=== PATIENT | female | born 1945 | race Caucasian/White ===

== ENCOUNTER → 2016-05-04 | Outpatient (CLI) | payer MEDICARE, BC ==
--- NOTE | 2016-05-05 11:41 | MM ---
Reason for exam: screening (asymptomatic). Last mammogram was performed 1 year and 1 month ago. History: Patient is postmenopausal and history of other cancer. Family history of breast cancer in sister at age 75 and breast cancer in aunt. Took estrogen for 9 years beginning at age 49. Took progesterone for 9 years beginning at age 49. Physical Findings: A clinical breast exam by your physician is recommended on an annual basis and results should be correlated with mammographic findings. MG 3D Screening Mammo W/Cad Bilateral CC and MLO view(s) were taken. Prior study comparison: April 17, 2015, right breast MG 3d work up w/cad RT. March 28, 2015, bilateral MG screening mammo w CAD. The breast tissue is heterogeneously dense. This may lower the sensitivity of mammography. No significant changes when compared with prior studies. ASSESSMENT: Negative, BI-RAD 1 RECOMMENDATION: Routine screening mammogram of both breasts in 1 year.
== END | disposition home or self-care (01) ==
LOC: RADMAMWWP 12:50
PROVIDERS: ATTEND Family Medicine
DX: Z12.31 Encounter for screening mammogram for malignant neoplasm of breast (principal)
CPT/HCPCS: 77063; G0202

== ENCOUNTER → 2017-04-05 | Outpatient (CLI) | payer MEDICARE, BC | END | disposition home or self-care (01) | LOC: CANPRECLI → WWCWWP 13:44 | PROVIDERS: ATTEND Obstetrics & Gynecology | DX: Z53.9 Procedure and treatment not carried out, unspecified reason (principal) ==

== ENCOUNTER → 2017-07-01 | Outpatient (CLI) | payer MEDICARE, BC ==
--- NOTE | 2017-07-04 11:38 | MM ---
Reason for exam: screening (asymptomatic). Last mammogram was performed 1 year and 2 months ago. History: Patient is postmenopausal and history of other cancer. Family history of breast cancer in sister at age 75 and breast cancer in aunt. Took estrogen for 9 years beginning at age 49. Took progesterone for 9 years beginning at age 49. Physical Findings: A clinical breast exam by your physician is recommended on an annual basis and results should be correlated with mammographic findings. MG 3D Screening Mammo W/Cad Bilateral CC and MLO view(s) were taken. Prior study comparison: May 04, 2016, bilateral MG 3d screening mammo w/cad. April 17, 2015, right breast MG 3d work up w/cad RT. The breast tissue is heterogeneously dense. This may lower the sensitivity of mammography. No significant changes when compared with prior studies. ASSESSMENT: Benign, BI-RAD 2 RECOMMENDATION: Routine screening mammogram of both breasts in 1 year.
== END | disposition home or self-care (01) ==
LOC: RADMAMWWP 12:37
PROVIDERS: ATTEND Obstetrics & Gynecology
DX: Z12.31 Encounter for screening mammogram for malignant neoplasm of breast (principal)
CPT/HCPCS: 77063; 77067

== ENCOUNTER 2018-04-09 23:44 | Emergency (ER) | payer MEDICARE, BC ==
[2018-04-09 23:52] VITALS: TEMP 97.5
[2018-04-10 00:47] LABS: Basophils % (A) 0 %; Eosinophils # (A) 0.1 k/uL (0-0.7); Eosinophils % (A) 2 %; HCT 42.4 % (34.0-46.0); HGB 13.9 gm/dL (11.4-16.0); Lymphocytes # (A) 1.7 k/uL (1.0-4.8); Lymphocytes % (A) 21 %; MCH 32.5 pg (25.0-35.0); MCHC 32.7 g/dL (31.0-37.0); MCV 99.2 fL (80.0-100.0); Mean Platelet Volume 8.4; Monocytes # (A) 0.3 k/uL (0-1.0); Monocytes % (A) 4 %; Neutrophils % (A) 73 %; Platelet Count 141 k/uL (150-450); RBC 4.28 m/uL (3.80-5.40); WBC 8.3 k/uL (3.8-10.6)
--- NOTE | 2018-04-10 01:01 | XR ---
EXAMINATION TYPE: XR chest 2V DATE OF EXAM: 04/10/2018 COMPARISON: NONE HISTORY: Epigastric pain TECHNIQUE: Frontal and lateral views of the chest are obtained. FINDINGS: There is no heart failure nor confluent pneumonic infiltrate. Costophrenic angles are paramjit r. There are chest leads. Bony thorax is intact. There are small calcified granuloma at the left isidro hilum. IMPRESSION: No active cardiopulmonary disease. Normal heart.
[2018-04-10 01:02] LABS: INR 0.9 (<1.2); Partial Thromboplastin Time 22.2 sec (22.0-30.0)
[2018-04-10 01:04] LABS: ALT 17 U/L (9-52); AST 38 U/L (14-36); Albumin 4.3 g/dL (3.5-5.0); Alkaline Phosphatase 63 U/L (38-126); Amylase 75 U/L (30-110); Anion Gap 8 mmol/L; Blood Urea Nitrogen 23 mg/dL (7-17); Calcium 9.9 mg/dL (8.4-10.2); Carbon Dioxide 28 mmol/L (22-30); Chloride 101 mmol/L (98-107); Glucose 103 mg/dL (74-99); Lipase 137 U/L (23-300); Magnesium 2.1 mg/dL (1.6-2.3); Potassium 4.4 mmol/L (3.5-5.1); Sodium 137 mmol/L (137-145); Total Bilirubin 0.2 mg/dL (0.2-1.3); Total Protein 6.9 g/dL (6.3-8.2)
[2018-04-10 01:14] LABS: Creatine Kinase 61 U/L (30-135)
[2018-04-10 01:27] LABS: Creatine Kinase MB 1.1 ng/mL (0.0-2.4); Troponin I <0.012 ng/mL (0.000-0.034)
[2018-04-10] MEDS ORDERED: MAG HYDROX/AL HYDROX/SIMETH 30 ML, HYOSCYAMINE ELIXIR 10 ML, CIMETIDINE HCL 300 MG, LID... PO STA ×4 (01:35)
--- NOTE | 2018-04-10 01:47 | ED ---
General Adult HPI - General Chief complaint: Chest Pain Stated complaint: Chest Pain Time Seen by Provider: 04/10/18 00:24 Source: patient Mode of arrival: ambulatory Limitations: no limitations - History of Present Illness Initial comments: Debbie is a pleasant 73 yo female who presents to the ED this evening for evaluation of burning epigastric abdominal pain. She reports she ate scrambled eggs with him and green peppers for dinner, she was feeling well at that time however around bedtime she began to experience burning pain in her epigastrium radiating into her chest and jaw. Pain was not associated with any shortness of breath, diaphoresis or lightheadedness. Pain persisted for approximately an hour at which time she took a Zantac and an 81 mg aspirin. Contacted her daughter who decided to bring her to the ER for evaluation. Patient has no history of any cardiac pathology. She has been admitted and evaluated for pain similar to this in the past and was diagnosed with acid reflux. Patient reports she still has her gallbladder and has no history of gallstones or any history of pancreatitis. She denies alcohol intake. Reports the pain resolved upon coming to the hospital. - Related Data Previous Rx's Medication Instructions Recorded Sucralfate [Carafate] 1 gm PO ACHS #1 bottle 04/10/18 Allergies Allergy/AdvReac Type Severity Reaction Status Date / Time No Known Allergies Allergy Verified 04/09/18 23:52 Review of Systems ROS Statement: Those systems with pertinent positive or pertinent negative responses have been documented in the HPI. ROS Other: All systems not noted in ROS Statement are negative. Past Medical History Past Medical History: GERD/Reflux History of Any Multi-Drug Resistant Organisms: None Reported Past Surgical History: Tonsillectomy, Tubal Ligation Additional Past Surgical History / Comment(s): left hand carpal tunnnel Past Psychological History: No Psychological Hx Reported Smoking Status: Former smoker Past Alcohol Use History: Occasional Past Drug Use History: None Reported General Exam - General Exam Comments Initial Comments: Physical Exam GENERAL: Patient is well-developed and well-nourished. Patient is nontoxic and well- hydrated and is in no distress. HENT: Normocephalic, Atraumatic. EYES: PERRL, EOMI PULMONARY: Unlabored respirations. No audible rales rhonchi or wheezing was noted. CARDIOVASCULAR: There is a regular rate and rhythm without any murmurs gallops or rubs. ABDOMEN: Soft and nontender with normal bowel sounds. SKIN: Skin is clear with no lesions or rashes and otherwise unremarkable. : Deferred NEUROLOGIC: Patient is alert and oriented x3. Moving all extremities spontaneously MUSCULOSKELETAL: Normal extremities with adequate strength and full range of motion. No lower extremity swelling or edema. No calf tenderness. PSYCHIATRIC: Normal psychiatric evaluation. Limitations: no limitations Limitations: no limitations Course Vital Signs 04/09/18 04/10/18 04/10/18 23:48 00:26 01:12 Temperature 97.5 F L Pulse Rate 59 L 55 L Pulse Rate [ 57 L Flag Signalman ] Respiratory 18 17 Rate Blood Pressure 137/73 142/73 O2 Sat by Pulse 97 98 Oximetry 04/10/18 01:58 Temperature Pulse Rate 66 Pulse Rate [ Flag Signalman ] Respiratory 24 Rate Blood Pressure 155/83 O2 Sat by Pulse 96 Oximetry EKG Findings - EKG Comments: EKG Findings:: EKG obtained at 12:08 AM, rate of 60 rhythm is sinus normal axis normal intervals no acute ST elevations or depressions no evidence of acute ischemia or infarction. Medical Decision Making - Medical Decision Making Patient was seen and evaluated, history was obtained from the patient 73-year-old female with no cardiac history, only risk factor for cardiac disease is age and history of hyperlipidemia Patient presenting with burning epigastric abdominal pain after eating a dinner which contain both him and peppers Pain was not exertional, not associated with diaphoresis lightheadedness or shortness of breath. Pain has resolved prior to arrival Labs and imaging ordered EKG was unremarkable next and chest x-ray with no acute findings Labs with no significant abnormalities. A GI cocktail was ordered and given. Patient reported resolution of all of her discomfort At the same and a high suspicion patient's discomfort was GI in etiology. Patient does not have a cardiac history and has minimal risk factors. Patient is comfortable with the plan for discharge home. Dietary modifications including avoiding spicy or greasy foods prior to going to bed were discussed with the patient. Patient will be prescribed Carafate. All questions pertaining care answered return parameters discussed patient discharged home in stable condition - Lab Data Result diagrams: 04/10/18 00:17 04/10/18 00:17 Lab Results 04/10/18 04/10/18 04/10/18 Range/Units 00:17 00:17 00:17 WBC 8.3 (3.8-10.6) k/uL RBC 4.28 (3.80-5.40) m/uL Hgb 13.9 (11.4-16.0) gm/dL Hct 42.4 (34.0-46.0) % MCV 99.2 (80.0-100.0) fL MCH 32.5 (25.0-35.0) pg MCHC 32.7 (31.0-37.0) g/dL RDW 12.0 (11.5-15.5) % Plt Count 141 L (150-450) k/uL Neutrophils % 73 % Lymphocytes % 21 % Monocytes % 4 % Eosinophils % 2 % Basophils % 0 % Neutrophils # 6.0 (1.3-7.7) k/uL Lymphocytes # 1.7 (1.0-4.8) k/uL Monocytes # 0.3 (0-1.0) k/uL Eosinophils # 0.1 (0-0.7) k/uL Basophils # 0.0 (0-0.2) k/uL PT (9.0-12.0) sec INR (<1.2) APTT (22.0-30.0) sec Sodium 137 (137-145) mmol/L Potassium 4.4 (3.5-5.1) mmol/L Chloride 101 (98-107) mmol/L Carbon Dioxide 28 (22-30) mmol/L Anion Gap 8 mmol/L BUN 23 H (7-17) mg/dL Creatinine 0.68 (0.52-1.04) mg/dL Est GFR (CKD-EPI)AfAm >90 (>60 ml/min/1.73 sqM) Est GFR (CKD-EPI)NonAf 88 (>60 ml/min/1.73 sqM) Glucose 103 H (74-99) mg/dL Calcium 9.9 (8.4-10.2) mg/dL Magnesium 2.1 (1.6-2.3) mg/dL Total Bilirubin 0.2 (0.2-1.3) mg/dL AST 38 H (14-36) U/L ALT 17 (9-52) U/L Alkaline Phosphatase 63 (38-126) U/L Total Creatine Kinase 61 (30-135) U/L CK-MB (CK-2) 1.1 (0.0-2.4) ng/mL CK-MB (CK-2) Rel Index 1.8 Troponin I <0.012 (0.000-0.034) ng/mL Total Protein 6.9 (6.3-8.2) g/dL Albumin 4.3 (3.5-5.0) g/dL Amylase 75 (30-110) U/L Lipase 137 (23-300) U/L 04/10/18 Range/Units 00:17 WBC (3.8-10.6) k/uL RBC (3.80-5.40) m/uL Hgb (11.4-16.0) gm/dL Hct (34.0-46.0) % MCV (80.0-100.0) fL MCH (25.0-35.0) pg MCHC (31.0-37.0) g/dL RDW (11.5-15.5) % Plt Count (150-450) k/uL Neutrophils % % Lymphocytes % % Monocytes % % Eosinophils % % Basophils % % Neutrophils # (1.3-7.7) k/uL Lymphocytes # (1.0-4.8) k/uL Monocytes # (0-1.0) k/uL Eosinophils # (0-0.7) k/uL Basophils # (0-0.2) k/uL PT 10.0 (9.0-12.0) sec INR 0.9 (<1.2) APTT 22.2 (22.0-30.0) sec Sodium (137-145) mmol/L Potassium (3.5-5.1) mmol/L Chloride (98-107) mmol/L Carbon Dioxide (22-30) mmol/L Anion Gap mmol/L BUN (7-17) mg/dL Creatinine (0.52-1.04) mg/dL Est GFR (CKD-EPI)AfAm (>60 ml/min/1.73 sqM) Est GFR (CKD-EPI)NonAf (>60 ml/min/1.73 sqM) Glucose (74-99) mg/dL Calcium (8.4-10.2) mg/dL Magnesium (1.6-2.3) mg/dL Total Bilirubin (0.2-1.3) mg/dL AST (14-36) U/L ALT (9-52) U/L Alkaline Phosphatase (38-126) U/L Total Creatine Kinase (30-135) U/L CK-MB (CK-2) (0.0-2.4) ng/mL CK-MB (CK-2) Rel Index Troponin I (0.000-0.034) ng/mL Total Protein (6.3-8.2) g/dL Albumin (3.5-5.0) g/dL Amylase (30-110) U/L Lipase (23-300) U/L Disposition Clinical Impression: Abdominal pain, Atypical chest pain Disposition: HOME SELF-CARE Condition: Good Instructions: Gastritis (DC), Diet for Stomach Ulcers and Gastritis (ED) Prescriptions: Sucralfate [Carafate] 1 gm PO ACHS #1 bottle Is patient prescribed a controlled substance at d/c from ED?: No Referrals: Den Ureña MD [Primary Care Provider] - 1-2 days
[2018-04-10 02:42] VITALS: BP 139/72; PULSE 82; RESP 22
== END 2018-04-10 02:56 | disposition home or self-care (01) ==
LOC: EC 23:44
DX: R07.89 Other chest pain (principal); R10.13 Epigastric pain; Z87.19 Personal history of other diseases of the digestive system; Z87.891 Personal history of nicotine dependence
CPT/HCPCS: 36415; 71046; 80053; 82150; 82550; 82553; 83690; 83735; 84484; 85025; 85610; 85730; 93005; 99285

== ENCOUNTER → 2018-06-13 | Outpatient (CLI) | payer MEDICARE, BC, OTHER ==
[2018-06-13 08:54] VITALS: BP 116/65; PULSE 80; RESP 16; TEMP 97.5; BMI 20.5
--- NOTE | 2018-06-13 09:32 | P.PN ---
Progress Note - Text Progress Note Date: 06/13/18 Chief Complaint: right labia minora swelling times 2 weeks HPI: this is a 73-year-old G3 PIII with an LMP of 1993. The patient noticed a small abrasion on the right labia minora about 2 weeks ago. She believes it was from her tight jeans that she wore at that time. The abrasion developed into swelling the size of her small finger. She went to the urgent care clinic 4 days ago and was given antibiotics. She was prescribed cephalexin 500 mg BID times 7 days. She states the swelling has gone down, however it still appears swollen compared to the other side. She does not believe that it appeared to be a blister. She does think she has had similar abrasions in the past but never was so swollen. She is wondering if she could have a yeast infection since it still is somewhat swollen. She denies any vaginal discharge or pruritus. She is not sexually active. ROS: she denies fever. She denies respiratory, cardiac, or G.I. problems. : she states she has been seen many times over the years for bladder pressure. She denies any new symptoms. She denies dysuria or urinary urgency. PE: Blood pressure: 116/65, Height: 5'3", Weight: 116 pounds, Temperature: 97.5 , Pulse: 80. Pulse oximeter 97%, respiratory rate 16. This is a well developed, well nourished, white female who is alert and orientedx3, in no acute distress. External genitalia reveals generalized moderate atrophy. There is a 3 mm abrasion in the right labia minora which is minimally erythematous and there is no active bleeding. There is a small amount of swelling directly in this area approximately the size of a small pea in the right labia minora. This is about twice the normal size compared to the left side. The area is nontender. The rest of the right labia minora is minimally enlarged compared to the left labia minora. Speculum exam reveals mild to moderate vaginal atrophy and the cervix appears normal. There is no unusual discharge. Impression: 1. 73-year-old menopausal female with right labial abrasion and resulting vulvitis with swelling which has improved according to the patient following PO cephalexin which was described 4 days ago. Differential diagnosis will also include genital herpes lesion, however, she states she has no history of genital herpes, so I think this would be unlikely. 2. No evidence of yeast infection at this time. Plan: 1. She was instructed to complete her course of cephalexin as directed. 2. Neosporin BID to the small abrasion until well-heeled. She can also use warm compresses to the area. 3. If she has a recurrence of the abrasion type lesion, she is instructed to make an appointment to see me as soon as possible for reevaluation. 4. She will return in approximately 2 weeks. She states she has an appointment for her annual well woman exam and we will reevaluate this area at that time. 5. She was also instructed to call if she is having problems such as vulvar pruritus or whitish discharge, in which case we may treat her for a yeast infection. Time spent with the patient: 15 minutes
== END | disposition home or self-care (01) ==
LOC: WWCWWP 08:31
PROVIDERS: ATTEND Obstetrics & Gynecology
DX: Z53.9 Procedure and treatment not carried out, unspecified reason (principal)

== ENCOUNTER → 2018-07-04 | Outpatient (CLI) | payer MEDICARE, BC ==
[2018-07-04 11:22] VITALS: BP 109/63; PULSE 63; RESP 16; TEMP 97.7; BMI 20.2
--- NOTE | 2018-07-04 12:19 | P.HPOB ---
History of Present Illness H&P Date: 07/04/18 Chief Complaint: The patient is here for her routine gynecologic exam and ma mmogram. This is a 73-year-old G3 PIII with an LMP of 1993. The patient is without gynecologic complaints. She was recently seen on 06/13/2018 because of an abrasion on the right labia. She states this has healed up, but she has to be careful that if she wears tight jeans it can irritate this. Review of Systems Weight has been stable. She denies respiratory, cardiac and G.I. problems. She denies maltreatment or problems with falling. : she occasionally has urinary frequency where she has to get up several times during the night. She has been seeing Dr. Bull, the urologist for this. Past Medical History Past Medical History: Eye Disorder, GERD/Reflux Additional Past Medical History / Comment(s): Glaucoma and osteoporosis (s/p >5yrs use of Actonel). 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 History of Any Multi-Drug Resistant Organisms: None Reported Past Surgical History: Tonsillectomy, Tubal Ligation Additional Past Surgical History / Comment(s): left hand carpal tunnnel. Cataract surgery. Colonoscopy 2013(3rd, next 5 yrs). Upper endoscopy 2016. Past Psychological History: No Psychological Hx Reported Smoking Status: Former smoker (Quit at age 41) Past Alcohol Use History: Occasional (0 to 3 per month) Past Drug Use History: None Reported Additional History: She is a and is not sexually active. - Past Family History Sister(s) Family Medical History: Cancer Additional Family Medical History / Comment(s): Breast cancer. A different sister had lung cancer. Father Additional Family Medical History / Comment(s): Heart disease. Paternal aunt had breast cancer. Medications and Allergies Home Medications Medication Instructions Recorded Confirmed Type ALPRAZolam [Xanax] 0.25 mg PO DAILY PRN 06/13/18 07/04/18 History Alendronate Sodium [Fosamax] 70 mg PO DAILY 06/13/18 07/04/18 History Brimonidine Tartrate [Alphagan P 1 drops BOTH EYES Q8H 06/13/18 07/04/18 History 0.2% Ophth Soln] Famotidine [Pepcid] 20 mg PO DAILY 06/13/18 07/04/18 History Latanoprost/Pf [Latanoprost 0.005% 1 drop BOTH EYES HS 06/13/18 07/04/18 History Eye Drop] Polyethylene Glycol 3350 [Miralax] 17 gm PO DAILY 06/13/18 07/04/18 History Allergies Allergy/AdvReac Type Severity Reaction Status Date / Time No Known Allergies Allergy Verified 07/04/18 11:23 Exam Vital Signs Temp Pulse Resp BP Pulse Ox 07/04/18 11:13 97.7 F 63 16 109/63 98 Intake and Output 07/03/18 07/04/18 07/04/18 22:59 06:59 14:59 Other: Weight 51.71 kg Height 5'3", weight 114 pounds, BMI 20.2. This is a well-developed well-nourished white female who is alert and oriented times 3 in no acute distress. HEENT: Within normal limits. NECK: Supple without mass or thyromegaly. CHEST AND LUNGS: Clear to auscultation. HEART: Regular rate and rhythm. BREASTS: Are without mass or discharge. AXILLARY EXAM: Negative for adenopathy. BACK: Negative for CVA tenderness. ABDOMEN: Soft, nontender, without palpable masses. PELVIC EXAM: Normal external genitalia with moderate atrophy. The previously seen right labial abrasion is no longer seen. There is no evidence of swelling or erythema as well. Cervix and vagina appear normal with moderate atrophy. There is no unusual discharge. There is no evidence of prolapse. The uterus is midposition, nongravid size and nontender. There are no palpable adnexal masses or tenderness. RECTAL EXAM: rectovaginal exam is negative for mass or tenderness and is negative for occult blood. EXTREMITIES: Nontender. IMPRESSION: 1. 73-year-old menopausal female with normal gynecologic exam. 2. Resolution of the right labial abrasion noted on 06/13/2018. 3. History of osteoporosis on Fosamax. PLAN: 1. Pap smear was deferred since she had a normal one on 04/05/2017. 2. Self breast awareness was discussed with the patient. 3. Greening mammogram will be done today. 4. Osteoporosis management was discussed. I have stressed the importance of adequate calcium, vitamin D and regular exercise. Recommended amounts of calcium and vitamin D were also discussed. She will continue to be treated with Fosamax and have bone density testing done through Dr. Minor. 5. She did receive a flu shot this past fall. 6. She will look into a colonoscopy in the upcoming year. 7.She was advised to return in one year for her annual well woman exam.
--- NOTE | 2018-07-06 10:05 | MM ---
Reason for exam: screening (asymptomatic). Last mammogram was performed 1 year ago. History: Patient is postmenopausal and history of other cancer. Family history of breast cancer in sister at age 75 and breast cancer in aunt. Took estrogen for 9 years beginning at age 49. Took progesterone for 9 years beginning at age 49. Physical Findings: A clinical breast exam by your physician is recommended on an annual basis and results should be correlated with mammographic findings. MG 3D Screening Mammo W/Cad Bilateral CC and MLO view(s) were taken. Prior study comparison: July 01, 2017, bilateral MG 3d screening mammo w/cad. May 04, 2016, bilateral MG 3d screening mammo w/cad. The breast tissue is heterogeneously dense. This may lower the sensitivity of mammography. No significant changes when compared with prior studies. ASSESSMENT: Negative, BI-RAD 1 RECOMMENDATION: Routine screening mammogram of both breasts in 1 year.
== END ==
LOC: WWCWWP 11:06
PROVIDERS: ATTEND Obstetrics & Gynecology
DX: Z12.31 Encounter for screening mammogram for malignant neoplasm of breast (principal)
CPT/HCPCS: 77063; 77067

== ENCOUNTER → 2020-01-23 | Outpatient (CLI) | payer MEDICARE, BC ==
--- NOTE | 2020-01-23 13:42 | MM ---
Reason for exam: additional evaluation requested from prior study. Last mammogram was performed 1 year and 7 months ago. History: Patient is postmenopausal and history of other cancer. Family history of breast cancer in sister at age 75 and breast cancer in aunt. Took estrogen for 9 years beginning at age 49. Took progesterone for 9 years beginning at age 49. Physical Findings: Nurse did not find any significant physical abnormalities on exam. MG 3D Diag Mammo W/Cad BRANDON Bilateral CC and MLO view(s) were taken. Prior study comparison: July 04, 2018, bilateral MG 3d screening mammo w/cad. July 01, 2017, bilateral MG 3d screening mammo w/cad. The breast tissue is heterogeneously dense. This may lower the sensitivity of mammography. These results were verbally communicated with the patient and result sheet given to the patient on 01/23/20. ASSESSMENT: Benign, BI-RAD 2 RECOMMENDATION: Routine screening mammogram of both breasts in 1 year.
== END | disposition home or self-care (01) ==
LOC: RADMAMWWP 12:50
PROVIDERS: ATTEND Family Medicine
DX: N64.4 Mastodynia (principal)
CPT/HCPCS: 77066; G0279; 77062

== ENCOUNTER → 2020-04-22 | Outpatient (CLI) | payer MEDICARE, BC ==
[2020-04-22 13:38] VITALS: BP 118/72; PULSE 78; RESP 18; TEMP 97.6
--- NOTE | 2020-04-22 15:11 | P.PN ---
Progress Note - Text Progress Note Date: 04/22/20 Chief Complaint: Vulvar burning progressively getting worse over the past 2 months. HPI: This is a 75-year-old with an LMP of 1993. The patient is complaining of vulvar irritation and burning. She states when urine touches the labia it feels much worse. Most foods seem to be associated with worsening of the symptoms and she states this is caused her to lose weight. She also notices more irritation and burning with movement. On occasion she has noticed a slight discharge. Upon inspecting the vulva she has noticed a light colored bump on the inner side of the labia left side. She denies urinary urgency or urinary frequency. This feels different than the labial abrasion she complained about in 2019. She has not been sexually active for many years. ROS: She denies fever. She denies respiratory, cardiac, or GI problems. However, many foods seem to make the vulvar irritation worse and therefore she has been hesitant today eat much. She has lost weight because of this. She thinks she has lost about 8 pounds because this. PE: Blood pressure: 118/72, Height: 5 feet 3-1/2 inches, Weight: 102 pounds, Temperature: 97.6, Pulse: 78. Pulse oximeter 98%. This is a well developed, well nourished, white female who is alert and orientedx3, in no acute distress. Abdomen: Soft nontender without palpable masses. External genitalia: Moderate atrophy is noted. There is no significant erythema or inflammation. There are no external lesions noted. On the inner aspect of the labia minora on the left side there is a small varicosity which is soft and nontender and noninflamed. There are no lesions of the urinary opening. Vagina: There is minimal creamy discharge without odor. The cervix appears moderately atrophic without lesions. There is no evidence of prolapse. Bimanual examination: Uterus is atrophic nontender. There are no palpable adnexal masses or tenderness. Impression: 1. 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 2. Occasional slight discharge. Differential diagnosis will include Radha vaginitis as well as physiologic discharge. 3. Benign appearing left labia minora varicosity. Plan: 1. I have reassured the patient about the left labia minora varicosity and this appears completely benign. 2. Trial of Premarin vaginal cream 1 g into the vagina 2 times weekly. She can also use a small amount of this on the external labia. She is afraid that it may cause more burning. She was instructed to use minimal amounts the first few times she uses it to see how she tolerates it. The electronic prescription will be sent to [facility] pharmacy in [place]. 3. Affirm testing was obtained from the vagina to check for radha, Gardnerella and Trichomonas. 4. She was instructed to return in 3 weeks for follow-up or sooner if problems. Time spent with the patient: 25 minutes
[2020-04-23 04:49] LABS: Gardnerella Negative (Negative); Source Vagina; Trichomonas Negative (Negative)
== END | disposition home or self-care (01) ==
LOC: WWCWWP 13:22
PROVIDERS: ATTEND Obstetrics & Gynecology
DX: N76.2 Acute vulvitis (principal); N89.8 Other specified noninflammatory disorders of vagina
CPT/HCPCS: 87480; 87510; 87660

== ENCOUNTER → 2020-08-12 | Outpatient (CLI) | payer MEDICARE, BC ==
[2020-08-12 15:05] VITALS: BP 132/60; PULSE 76; RESP 18; TEMP 97.4
--- NOTE | 2020-08-12 16:14 | P.PN ---
Progress Note - Text Progress Note Date: 08/12/20 Chief Complaint: Vaginal and vulvar burning much worse during the past 2 weeks. HPI: This is a 75-year-old with an LMP of 1993. She states that she has had some issues with genital burning since she had an abrasion on the right labia. According to my notes she had an abrasion on the right labia in 2019 which did heal up. When she was seen earlier this year for months ago, I had recommended a trial of estrogen cream since she did have significant genital atrophy which I thought may have been leading to the burning. Affirm testing was negative for Radha, Gardnerella, and Trichomonas. She denies any vaginal discharge. She did not try the estrogen cream because she was afraid that it might cause burning or blistering. She states she has had the burning for several months but didn't get much worse 2 weeks ago. She believes certain foods make things worse. She does not think she has a urinary tract infection, but states that the urine can make things burn more when it touches the skin especially with certain types of foods including sugary foods. She states she is concerned about eating foods because the possibly can make the genital burning worse and feels like she has lost weight because of this. She is not sexually active. ROS: She denies respiratory or cardiac problems. GI: Frequent constipation. PE: Blood pressure: 132/60, Height: 5 feet 3 inches, Weight: 106 pounds, Temperature: In the 97.4, Pulse: 76. Pulse oximeter 96%. This is a well developed, well nourished, white female who is alert and orientedx3, in no acute distress. External genitalia: Normal external genitalia with mild to moderate atrophy. There is no significant erythema, no ulcerations, no vulvar lesions and no leukoplakia. Cervix and vagina appear normal with moderate atrophy. There is no unusual discharge and no odor. There are no vaginal lesions. Impression: 1. 75-year-old menopausal female with worsening of chronic vulvar and vaginal burning with no significant physical findings other than moderate genital atrophy. 2. Her discomfort is out of proportion with the physical findings at this time. Differential diagnosis will include genital atrophy resulting in vaginal and vulvar burning, central nerve pain disorder, and at this time I doubt infectious vaginitis. Plan: 1. I still feel a trial of estrogen cream would be helpful. She has not used it yet because of her concerns of cost, cancer risk and the fear that it will make the burning worse or even cause blisters or ulceration. He thinks since she has not tried it at all, we should try it using very small amounts at first and increased to a normal maintenance dose. Estradiol vaginal cream has been prescribed and was called in to [facility] in [place]. The maintenance dose will be 1 g into the vagina and 2 times weekly. At first she was instructed to use the very smallest amount on the inner labia or just inside of the vagina to see if she tolerates it. If she does tolerate this she can use a slightly larger amount into the vagina. She will work up to 1 g into the vagina and then use this twice weekly. I have tried to reassure her that this type of vaginal cream is commonly used for vaginal symptoms and vaginal atrophy and does not typically cause blisters or severe irritation. I have also reassured her that using this into the vagina does not typically cause cancer and a very small amount would get into her using it this way. We will also try to stop it after certain amount of time if has improved the symptoms or we will. If it does not improve the symptoms. 2. She will use the estrogen vaginal cream as described above. She'll call if problems and also make a follow-up appointment for 1 month. If symptoms have not improved we can consider an approach that might help with central nerve pain. We can also consider a referral to a vaginitis clinic at a center such as the [facility] or the [facility] Time spent with the patient: 25 minutes
== END ==
LOC: WWCWWP 14:49
PROVIDERS: ATTEND Obstetrics & Gynecology
DX: N90.89 Other specified noninflammatory disorders of vulva and perineum (principal); N89.8 Other specified noninflammatory disorders of vagina

== ENCOUNTER → 2021-02-17 | Outpatient (CLI) | payer MEDICARE, BC ==
--- NOTE | 2021-02-19 09:12 | MM ---
Reason for exam: screening (asymptomatic). Last mammogram was performed 1 year and 1 month ago. History: Patient is postmenopausal and history of other cancer. Family history of breast cancer in sister at age 75 and breast cancer in paternal aunt. Took estrogen for 9 years beginning at age 49. Took progesterone for 9 years beginning at age 49. Physical Findings: A clinical breast exam by your physician is recommended on an annual basis and results should be correlated with mammographic findings. MG 3D Screening Mammo W/Cad Bilateral CC and MLO view(s) were taken. Prior study comparison: January 23, 2020, bilateral MG 3d diag mammo w/cad [facility]. July 04, 2018, bilateral MG 3d screening mammo w/cad. July 01, 2017, bilateral MG 3d screening mammo w/cad. The breast tissue is heterogeneously dense. This may lower the sensitivity of mammography. No significant changes when compared with prior studies. ASSESSMENT: Benign, BI-RAD 2 RECOMMENDATION: Routine screening mammogram of both breasts in 1 year.
== END | disposition home or self-care (01) ==
LOC: RADMAMWWP 11:11
PROVIDERS: ATTEND Obstetrics & Gynecology
DX: Z12.31 Encounter for screening mammogram for malignant neoplasm of breast (principal)
CPT/HCPCS: 77063; 77067

== ENCOUNTER → 2021-09-15 | Outpatient (CLI) | payer MEDICARE, BC ==
[2021-09-15 08:55] VITALS: BP 123/73; PULSE 98; RESP 17; TEMP 98.1
--- NOTE | 2021-09-15 14:24 | P.HPOB ---
History of Present Illness H&P Date: 09/15/21 Chief Complaint: Vulvar burning which has gone on for years. This is a 76-year-old with an LMP of 1993. The patient has been experiencing a vulvar and vaginal burning and this has gone on for a few years. I have tried to treat this with vaginal estrogen cream in the past. The patient has been hesitant to use the estrogen cream for fear that it will burn. She did try small point sized amount of cream to the vulva and she states it did burn so she has not been using it. I had suggested a trial of petroleum jelly to the vulva but she states this also caused burning. She states many foods seem to make it worse since she is having a hard time finding anything to eat because of this. She is not aware of what foods seem to make it worse. Even though it has been going on for a long time, and this is now becoming a big problem since it interferes with every aspect of her general activities. She has had her urine checked on many occasions without an explanation for her burning. She states she has had some vaginal discharge which is a creamy discharge noticed in the creases between her labia majora and labia minora near the clitoris. She denies pruritus or vaginal odor. She states the burning is felt in the vagina as well as the vulva. Review of Systems She has lost about 6 pounds over the past 3 years. She denies respiratory or cardiac problems GI: many foods seem to make her genital burning worse, but she is not aware of exact foods that seem to make it worse. Past Medical History Past Medical History: Eye Disorder, GERD/Reflux Additional Past Medical History / Comment(s): Glaucoma and osteoporosis (s/p >5yrs use of Actonel). 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 History of Any Multi-Drug Resistant Organisms: None Reported Past Surgical History: Tonsillectomy, Tubal Ligation Additional Past Surgical History / Comment(s): left hand carpal tunnnel. Cataract surgery. Colonoscopy 2013(3rd, next 5 yrs). Upper endoscopy 2016. Past Psychological History: No Psychological Hx Reported Smoking Status: Former smoker Past Alcohol Use History: Occasional Past Drug Use History: None Reported Additional History: She is a . - Past Family History Sister(s) Family Medical History: Cancer Additional Family Medical History / Comment(s): Breast cancer. A different sister had lung cancer. Father Additional Family Medical History / Comment(s): Heart disease. Paternal aunt had breast cancer. Medications and Allergies Home Medications Medication Instructions Recorded Confirmed Type ALPRAZolam [Xanax] 0.25 mg PO DAILY PRN 06/13/18 09/15/21 History Brimonidine Tartrate [Alphagan P 1 drops BOTH EYES Q8H 06/13/18 09/15/21 History 0.2% Ophth Soln] Famotidine [Pepcid] 20 mg PO DAILY 06/13/18 09/15/21 History Latanoprost/Pf [Latanoprost 0.005% 1 drop BOTH EYES HS 06/13/18 09/15/21 History Eye Drop] polyethylene glycoL 3350 [Miralax] 17 gm PO DAILY 06/13/18 09/15/21 History Cholecalciferol [Vitamin D3 (25 2,000 unit PO DAILY 04/22/20 09/15/21 History Mcg = 1000 Iu)] Minoxidil [Rogaine] 60 ml TP DAILY 04/22/20 09/15/21 History Cyclobenzaprine [Flexeril] 5 mg PO DIRECTED PRN 09/15/21 09/15/21 History Allergies Allergy/AdvReac Type Severity Reaction Status Date / Time No Known Allergies Allergy Verified 08/12/20 15:08 Exam Vital Signs Temp Pulse Resp BP Pulse Ox 09/15/21 08:52 98.1 F 98 17 123/73 98 Intake and Output 09/14/21 09/15/21 09/15/21 22:59 06:59 14:59 Other: Weight 48.988 kg Height 5 feet 2 inches, weight 108 pounds, BMI 19.8. This is a well-developed well-nourished white female who is alert and oriented 3 in no acute distress. External genitalia reveals mild to moderate atrophy without lesions. There is a small amount of smegma in the folds lateral to the clitoral leblanc. There is no odor noted. There is no significant erythema or pallor noted. There are no vulvar lesions. Cervix and vagina appear normal with mild to moderate atrophy. The cervix appears somewhat stenotic and atrophic and is nearly flat to the posterior vagina. There is no unusual discharge or odor. Bimanual examination: Uterus is small and atrophic. The uterus is nontender. There are no palpable adnexal masses or tenderness. Impression: 1. Chronic vulvar and vaginal burning with minimal findings on exam today. The findings on exam are most consistent with genital atrophy without lesions or discharge. Her vulvar and vaginal burning may be related to atrophic changes, but differential diagnosis will also include Radha vaginitis, bacterial vaginosis, or nonspecific vulvodynia. Plan: 1. She has the estradiol vaginal cream which she has not used other than a trial of a small pinpoint spot on the vulva which she states caused burning. The burning seems to be there even without using the estradiol cream. I would like her to try using a larger amount of estradiol cream into the vagina. She will use 1 g in the vagina 2 times weekly. 2. If she continues to have issues using estradiol vaginal cream or if she does not noticing any improvement in 2 weeks, we have discussed a trial of duloxetine 30 mg daily for 7 days, then 60 mg daily. The electronic prescription will be sent to [facility] pharmacy in [place]. 3. I have also recommended a low oxalate diet and information on this was given to the patient. 4. Affirm vaginitis panel was sent from the vagina. 5. If her symptoms are not improving, consider referral to a vulvodynia clinic at a tertiary center. 6. She will return in approximate 4-6 weeks, or after using one month of duloxetine or as needed. Time spent with patient 40 minutes.
[2021-09-16 12:10] LABS: Gardnerella Negative (Negative); Source Vagina; Trichomonas Negative (Negative)
== END ==
LOC: WWCWWP 08:40
PROVIDERS: ATTEND Obstetrics & Gynecology
DX: N76.89 Other specified inflammation of vagina and vulva (principal); Z87.39 Personal history of other diseases of the musculoskeletal system and connective tissue; Z87.891 Personal history of nicotine dependence
CPT/HCPCS: 87480; 87510; 87660

== ENCOUNTER → 2023-06-17 | Outpatient (CLI) | payer MEDICARE, BC ==
--- NOTE | 2023-06-20 20:14 | MM ---
Reason for Exam: Screening (asymptomatic). Last screening mammogram was performed 12 month(s) ago. Patient History: Menarche at age 16. First Full-Term at age 17. Postmenopausal. Other cancer. Estrogen for 9 years from age 49 until age 58. Progesterone for 9 years from age 49 until age 58. Paternal aunt had breast cancer. Sister had breast cancer, age 75. Risk Values: Radha 5 year model risk: 3.0%. NCI Lifetime model risk: 6.0%. Prior Study Comparison: 05/04/2016 Bilateral Screening Mammogram, [facility]. 07/01/2017 Bilateral Screening Mammogram, [facility]. 07/04/2018 Bilateral Screening Mammogram, [facility]. 01/23/2020 Bilateral Diagnostic Mammogram, [facility]. 02/17/2021 Bilateral Screening Mammogram, [facility]. 06/15/2022 Bilateral MG 3D screening mammo w/cad, [facility]. Tissue Density: The breasts are heterogeneously dense, which may obscure small masses. Findings: Analyzed By CAD. There is no suspicious group of microcalcifications or new suspicious mass in either breast. Overall Assessment: Negative, BI-RAD 1 Management: Screening Mammogram of both breasts in 1 year. See note below in regards to patient's increased 5 year Radha score. Patient should continue monthly self-breast exams. A clinical breast exam by your physician is recommended on an annual basis. This exam should not preclude additional follow-up of suspicious palpable abnormalities. Note on Radha scores and lifetime risk: 1. A Radha score greater than 3% is considered moderate risk. If this is the case, consider specialist referral to assess eligibility for a risk reducing agent. 2. If overall lifetime risk for the development of breast cancer is 20% or higher, the patient may qualify for future screening with alternating mammogram and breast MRI. Electronically signed and approved by: Chari Cardoso M.D. Radiologist
== END | disposition home or self-care (01) ==
LOC: RADMAMWWP 11:07
PROVIDERS: ATTEND Family Medicine
DX: Z12.31 Encounter for screening mammogram for malignant neoplasm of breast (principal); Z78.0 Asymptomatic menopausal state; Z80.3 Family history of malignant neoplasm of breast
CPT/HCPCS: 77063; 77067

== ENCOUNTER → 2023-06-17 | Outpatient (CLI) | payer MEDICARE, BC ==
[2023-06-17 12:55] LABS: ALT 11 U/L (4-34); AST 37 U/L (14-36); African American GFR (CKD) >90 (>60 ml/min/1.73 sqM); Albumin 4.3 g/dL (3.5-5.0); Alkaline Phosphatase 71 U/L (38-126); Anion Gap 6 mmol/L; Blood Urea Nitrogen 23 mg/dL (7-17); Calcium 9.2 mg/dL (8.4-10.2); Carbon Dioxide 30 mmol/L (22-30); Chloride 104 mmol/L (98-107); Glucose 85 mg/dL (74-99); Non-African American GFR(CKD) 87 (>60 ml/min/1.73 sqM); Potassium 4.5 mmol/L (3.5-5.1); Sodium 140 mmol/L (137-145); Total Bilirubin 0.5 mg/dL (0.2-1.3); Total Protein 6.6 g/dL (6.3-8.2)
--- NOTE | 2023-06-17 13:01 | BD ---
EXAMINATION TYPE: Axial Bone Density DATE OF EXAM: 06/17/2023 CLINICAL HISTORY: 78 years old Female. ICD-10 CODE: M81.0 osteoporosis Z78.0 menopause Height: 63 Weight: 109.7 FRAX RISK QUESTIONS: Alcohol (3 or more units per day): no Family History (Parent hip fracture): no Glucocorticoids (More than 3mos): no (Ex: prednisone, prednisolone, methylprednisolone, dexamethasone, and hydrocortisone). History of Fracture in Adulthood: yes Secondary Osteoporosis: 1. Type 1 Diabetes: no 2. Hyperthyroidism: no 3. Menopause before 45: yes 4. Malnutrition: no 5. Chronic liver disease: no Rheumatoid Arthritis: no Current Tobacco Use: no RISK FACTORS HISTORY OF: Surgery to Spine/Hip(right/left)/Wrist (right/left): no EXAM MEASUREMENTS: Bone mineral densitometry was performed using the [employer] System. Bone mineral density as measured about the Lumbar spine is: ----- L1-L4(G/cm2): 0.835 T Score Values are as follows: ----- L1: -3.3 ----- L2: -3.2 ----- L3: -2.5 ----- L4: -2.8 ----- L1-L4: -2.9 Z Score Values are as follows: ----- L1: -1.0 ----- L2: -0.9 ----- L3: -0.2 ----- L4: -0.5 ----- L1-L4: -0.6 Bone mineral density has: decreased -12.3 % since study of: 01.31.2015 Bone mineral density about the R hip (g/cm2): 0.703 Bone mineral density about the L hip (g/cm2): 0.675 T Score values are as follows: -----R Neck: -2.5 -----L Neck: -2.7 -----R Total: -2.4 -----L Total: -2.6 Z Score values are as follows: -----R Neck: -0.1 -----L Neck: -0.4 -----R Total: -0.3 -----L Total: -0.5 Bone mineral density has: decreased -6.4 % since study of: 01.31.2015 FRAX%s: The graph provided illustrates a 23.4% chance for a major osteoporotic fx and a 8.2% chance f or the hips probability for fx in 10 years time. IMPRESSION: Osteoporosis (T Score less than -2.5). There is increased fracture risk and therapy is usually indicated based on age. Re-Screen 1-2 years. NOTE: T-SCORE=SD OF THE YOUNG ADULT MEAN.
== END | disposition home or self-care (01) ==
LOC: RADBDWWP 11:04
PROVIDERS: ATTEND Internal Medicine
DX: M81.0 Age-related osteoporosis without current pathological fracture (principal); E55.9 Vitamin D deficiency, unspecified; M85.89 Other specified disorders of bone density and structure, multiple sites; Z78.0 Asymptomatic menopausal state
CPT/HCPCS: 77080; 80053; 82306; 82523

== ENCOUNTER → 2024-04-25 | Outpatient (CLI) | payer MEDICARE, BC ==
[2024-04-25 10:52] VITALS: BP 108/70; PULSE 67; RESP 17; TEMP 97.5
--- NOTE | 2024-04-25 16:06 | P.PAINPG ---
PQRS Measure Charge Sheet Comment: HISTORY OF PRESENT ILLNESS: A 79 yr old female as a referral from Dr Foss presents today w severe and chronic LBP > 1 yr secondary to radiculopathy, spondylosis and facet arthropathy without myelopathy, R Sacroiliitis for evaluation. Pt states pain level is provoked at 6-7 /10 in intensity, constant, localized in the lower lumbar spine, predominantly axial, throbbing in character w occasional shooting pain towards the R tailbone, R buttock and RLE. Pain is provoked by PT x 6 wks in 2021, sitting for periods > 15 min, bending, lifting. Pain is alleviated by physician guided home stretches daily since 2021, ice, medications (Tyl, muscle relaxer), repositioning and rest . Oswestry axial pain score at 31. PMH: OA, GERD, Glaucoma, OP, Vitamin D Deficiency PSH: Tonsillectomy, Tubal Ligation, L CTR, Cataract Surgery, Colonoscopy (2013), EGD (2015) SH: Former tobacco user, Occ ETOH use, No illicit drug use FH: Sis- Breast CA. Fa- CAD All: See list Meds: See list REVIEW OF ORGAN SYSTEMS: CONSTITUTIONAL: No fevers or chills. No recent weight loss. NEUROLOGICAL: + numbness and tingling along the distal extremities. No seizure disorders or headaches. MUSCULOSKELETAL: + pain PSYCHIATRIC: Denies current depression or suicidal thoughts. Physical Examinations : Constitutional : Cooperative , not in acute distress . Neurologic : Cranial nerve II to XII intact. No focal neurological deficits. Psychiatric : alert & oriented x 3. Matching mood & appropriate affect. Judgment & insight intact. Musculoskeletal : Cervical Spine Motor strength in the deltoid and biceps: Normal right side. Normal Left side Motor strength biceps and the wrist extensors: Normal right side . Normal left side Motor strength in the triceps muscle: Normal right side. Normal left side Deep tendon reflexes: Normal at the biceps. Normal at Brachioradialis. Normal at triceps Vertebral body tenderness to deep palpation over Cervical facet loading test: positive bilaterally Spurling test: positive bilaterally Neck distraction test: positive bilaterally Rajeev sign: positive bilaterally Lumbar spine Motor strength lower extremities ,thigh and legs 5/5 Right side , 5/5 Left side Deep tendon reflexes : Normal Knee Jerk. Normal Ankle Jerk Vertebral body tenderness over Burkett Test positive Lumbar facet Loading Test: positive Right / positive Left Range of motion of the lumbar spine Flexion 30 degrees, extension 10 degrees Straight Leg Raise test: Left/ Right positive at degrees Andrei test: positive right / positive left. Severe tenderness over the Sacroiliac joint on the Right / Left sides Gaenslen test: positive bilaterally Seated flexion test: positive bilaterally. Sacral spine : Severe tenderness over the Sacroiliac joint: right side / left side Range of motion: Flexion of the lumbar spine <60 degrees Range of motion: Extension of the lumbar spine <20 degrees Gaenslen's Test positive R Andrei test: positive right side / left side Thigh Thrust Test R positive Sacral Thrust Test Imaging: MRI non contrast lumbar spine from 02/13/24 reviewed Assessment/ Plan : L4-S1 radiculopathy, R Sacroiliitis, R S3 cyst Recommendation of R SI injection #1. Risks, benefits of procedure discussed and patient verbalized understanding. Admits to anti- coagulant use or medical his tory of diabetes. Protocol for discontinuation/ continuation of medications isidro procedure discussed. All questions answered. I have spent greater than 30 minutes on patient care today. Dr Sweeney was available by phone for the evaluation of this patient. The time was used to review the medical records including relevant urine studies and Prescription history (MAPs), review of the available imaging, evaluation and examination of the patient, coordination of care with the medical staff and if applicable referring physicians, as well as creation of the medical record - Pain Location Buttock Non-Pharmacological Interventions: Ice PQRS Narrative: Smoking Status Former smoker Home Medications: Ambulatory Orders ALPRAZolam [Xanax] 0.25 mg PO DAILY PRN 06/13/18 Brimonidine Tartrate [Alphagan P 0.2% Ophth Soln] 1 drops BOTH EYES Q8H 06/13/18 Famotidine [Pepcid] 20 mg PO DAILY 06/13/18 Latanoprost/Pf [Latanoprost 0.005% Eye Drop] 1 drop BOTH EYES HS 06/13/18 polyethylene glycoL 3350 [Miralax] 17 gm PO DAILY 06/13/18 Cholecalciferol [Vitamin D3 (25 Mcg = 1000 Iu)] 2,000 unit PO DAILY 04/22/20 minoxidiL [Rogaine] 60 ml TP DAILY 04/22/20 Cyclobenzaprine [Flexeril] 5 mg PO DIRECTED PRN 09/15/21 Amitriptyline HCl [Elavil] 10 mg PO HS #30 tablet 10/06/21 Controlled Substance Measures - Controlled Substance Measures Is patient prescribed a controlled substance at discharge?: No
== END ==
LOC: PNWHC3 10:14
PROVIDERS: ATTEND Specialist
DX: M71.38 Other bursal cyst, other site (principal); M46.1 Sacroiliitis, not elsewhere classified; M54.17 Radiculopathy, lumbosacral region; Z87.891 Personal history of nicotine dependence
CPT/HCPCS: 99211